=== PATIENT | male | born 1950 | race Caucasian/White ===

== ENCOUNTER 2022-05-11 17:33 | Emergency (ER) | payer MEDICARE, BC, SELFPAY ==
[2022-05-11 17:35] VITALS: BP 153/79; PULSE 86; RESP 18; TEMP 36.7; O2SAT 98; BMI 23.6
--- NOTE | 2022-05-11 18:20 | ED.WOUNDLAC ---
HPI - Wound/Laceration General Date Seen: 05/11/22 Chief Complaint: Laceration/Wound Stated Complaint: Cut the top of the Left thumb Time Seen by Provider: 05/11/22 17:38 Source: patient, family and RN notes reviewed Mode of arrival: ambulatory Limitations: no limitations History of Present Illness HPI narrative: Sekou is a very pleasant 71-year-old male with up-to-date tetanus in 2017 otherwise healthy who comes to the emergency room with a laceration on the his left thumb. Patient was noted to be working within [employer] when it slipped and injured his thumb. He denies numbness or tingling. He is able to flex and extend his thumb without difficulty. He has no history of diabetes. Related Data Allergies Allergy/AdvReac Type Severity Reaction Status Date / Time No Known Drug Allergies Allergy Verified 05/11/22 17:38 [facility] Social History Smoking Status: Never smoker Do you use any of these nicotine containing products: None Second hand tobacco smoke exposure: No How often do you have a drink containing alcohol: never How often do you have six or more drinks on one occasion: Never AUDIT-C Alcohol total score: 0 Non-prescribed substance use: denies use service: No Exam Narrative: Exam Narrative: Sekou is alert and oriented nontoxic in appearance. Examination of his left thumb shows a 2 cm laceration over the dorsal aspect of the MCP. It compromises epidermis and dermis. No compromise of underlying structures. There does not appear to be any contamination or foreign bodies. Flexion extension intact. Sensation is intact. This area was irrigated. 1% lidocaine was infused for anesthesia. Four sutures of 5 0 Ethilon placed in interrupted fashion with good wound closure. Const: Vital Signs, click to edit/add: Vital Signs - 24 hr 05/11/22 17:35 Temperature 98.0 F Pulse Rate [Pulse Oximeter] 86 Respiratory Rate 18 Blood Pressure [Ri ght Upper Arm] 153/79 H Pulse Oximetry 98 Oxygen Delivery Me thod Room Air Documenting provider has reviewed patient's vital signs: yes Course Vital Signs Vital signs: Initial Vital Signs Temperature 98.0 F 05/11/22 17:35 Temperature Source Temporal Artery Scan 05/11/22 17:35 Pulse Rate 86 05/11/22 17:35 Pulse Rhythm 05/11/22 17:35 Pulse Strength 3+ Normal 05/11/22 17:35 Respiratory Rate 18 05/11/22 17:35 Blood Pressure 153/79 H 05/11/22 17:35 Blood Pressure Mean 103 05/11/22 17:35 Blood Pressure Position Sitting 05/11/22 17:35 Pulse Oximetry 98 05/11/22 17:35 Oxygen Delivery Method 05/11/22 17:35 Vital Signs Temperature 98.0 F 05/11/22 17:35 Pulse Rate 86 05/11/22 17:35 Respiratory Rate 18 05/11/22 17:35 Blood Pressure 153/79 H 05/11/22 17:35 Pulse Oximetry 98 05/11/22 17:35 Oxygen Delivery Method 05/11/22 17:35 Temperature 98.0 F 05/11/22 17:35 Pulse Rate 86 05/11/22 17:35 Respiratory Rate 18 05/11/22 17:35 Blood Pressure 153/79 H 05/11/22 17:35 Pulse Oximetry 98 05/11/22 17:35 Oxygen Delivery Method 05/11/22 17:35 MDM - Wound/Laceration MDM Narrative Medical decision making narrative: 1. Laceration repair-patient has had 4 sutures placed with good wound approximation. Recommend suture removal in 10 days time. Monitor for signs and symptoms of infection and seek medical attention should they occur. Tylenol or ibuprofen as needed for discomfort. Recommend minimal movement for the next 48-72 hours at the [facility]. 2. Disposition-home. Return as needed. Discharge Plan Discharge Clinical Impression: Laceration Patient Disposition: Home, Self-Care Condition: Improved Additional Instructions: Slight sutures removed in 10 days time. Limit movement at the [facility] for at least 48-72 hours. I do not soak in water but tomorrow you may use open water had to clean it daily. Gently dab the stitches for drying. You may shower. Do not so can such as doing dishes. Return for signs and symptoms of infection. Tylenol or ibuprofen as needed for pain Stand Alone Forms: MyHealth Info Instructions
== END 2022-05-11 18:41 | disposition home or self-care (01) ==
PROVIDERS: Emergency Provider Family Medicine
DX: S61.012A Laceration without foreign body of left thumb without damage to nail, initial encounter (principal); W26.9XXA Contact with unspecified sharp object(s), initial encounter
CPT/HCPCS: 12001; 99283